=== PATIENT | female | born 1975 | race Two or more races ===

== ENCOUNTER 2023-01-01 06:24 | Inpatient (IN) | payer MEDICAID ==
[~2023-01-01] VITALS: Ht 147.3 cm; Wt 60.0 kg
[2023-01-01 07:27] LABS: Basophils # (auto) 0.1 10 ^3/uL (0-0.2); Basophils % (auto) 0.8 % (0.0-2.0); Eosinophils # (auto) 0.1 10 ^3/uL (0-0.8); Hemoglobin 7.1 g/dL (12.2-16.2); Lymphocytes # (auto) 1.6 10 ^3/uL (0.4-5.4)
[2023-01-01 07:28] LABS: Albumin 2.4 g/dL (3.4-5.0); Calcium 7.7 mg/dL (8.5-10.1); Eosinophils % (auto) 1.3 % (0.0-7.0); Hematocrit 20.9 % (36.0-46.0); Lymphocytes % (auto) 20.9 % (10.0-50.0); Mean Corpuscular Hemoglobin 27.8 pg (28.0-32.0); Mean Corpuscular Hgb Conc. 33.8 g/dL (32.0-36.0); Mean Corpuscular Volume 82.4 fL (80.0-100.0); Monocytes # (auto) 0.5 10 ^3/uL (0-1.3); Monocytes % (auto) 6.7 % (0.0-12.0); Neutrophils # (auto) 5.3 10 ^3/uL (1.6-8.6); Neutrophils % (auto) 70.3 % (37.0-80.0); Nucleated Red Blood Cells % 0.2 %; Potassium 3.4 mmol/L (3.5-5.1); Red Blood Cells 2.54 10^6/uL (4.0-5.20); White Blood Cell 7.5 10^3/uL (4.4-10.8)
[2023-01-01 07:31] LABS: BUN/Creatinine Ratio 28.7; Bilirubin, Total 0.1 mg/dL (0.2-1.0); Total Protein 6.5 g/dL (6.4-8.2)
[2023-01-01] MEDS: ACETAMINOPHEN 325 MG TAB PO PRN (10:06)
[2023-01-01] MEDS ORDERED: HYDROcodone-ACET 5/325MG TAB PO ONE (10:15)
[2023-01-01] MEDS ORDERED: ACETAMINOPHEN 325 MG TAB PO ONE (10:15)
[2023-01-01 11:03] LABS: Urine Bacteria NONE SEEN /hpf (None Seen); Urine Blood 3+ /uL (Negative); Urine WBC 128 /hpf (0 - 5); Urine WBC Clumps PRESENT /hpf (None Seen)
[2023-01-01 11:07] LABS: % Iron Saturation 6.1 % (15-50)
[2023-01-01] MEDS ORDERED: DOCUSATE SOD 100 MG CAP PO PRN (12:15)
[2023-01-01] MEDS ORDERED: ONDANSETRON HCL 4 MG/2 ML VIAL IV PRN (12:15)
[2023-01-01] MEDS ORDERED: ACETAMINOPHEN 325 MG TAB PO PRN (12:15)
[2023-01-01] MEDS: SODIUM CHLOR 0.9% PF (SALINE LOCK) 10ML VIAL/SYR IV SCH ×3 (13:10→22:33)
[2023-01-01 17:07] LABS: Hematocrit 17.4 % (36.0-46.0)
[2023-01-01 17:16] LABS: Hemoglobin 5.9 g/dL (12.2-16.2)
[2023-01-01 17:19] LABS: Cholesterol 211 mg/dL (< 200); Triglycerides 225 mg/dL (< 150)
[2023-01-01 17:21] LABS: HDL Cholesterol 61 mg/dL (40-59); LDL Cholesterol 120 mg/dL (< 100)
[2023-01-01 18:08] VITALS: BP 127/69
[2023-01-01 18:26] VITALS: BP 117/69
[2023-01-01 19:17] LABS: INR 0.93 (0.9-1.15)
[2023-01-01 19:20] LABS: % Iron Saturation 7.6 % (15-50)
[2023-01-01 20:35] VITALS: BP 128/73
[2023-01-02 00:06] LABS: Hematocrit 21.5 % (36.0-46.0); Hemoglobin 7.2 g/dL (12.2-16.2)
[2023-01-02 05:42] LABS: Basophils # (auto) 0.1 10 ^3/uL (0-0.2); Basophils % (auto) 0.8 % (0.0-2.0); Eosinophils # (auto) 0.1 10 ^3/uL (0-0.8); Mean Corpuscular Hemoglobin 28.3 pg (28.0-32.0); Mean Corpuscular Hgb Conc. 33.4 g/dL (32.0-36.0); Mean Corpuscular Volume 84.7 fL (80.0-100.0); Monocytes # (auto) 0.6 10 ^3/uL (0-1.3); White Blood Cell 7.3 10^3/uL (4.4-10.8)
[2023-01-02 05:44] LABS: Eosinophils % (auto) 1.6 % (0.0-7.0); Hemoglobin 7.3 g/dL (12.2-16.2); Lymphocytes # (auto) 1.7 10 ^3/uL (0.4-5.4); Monocytes % (auto) 8.2 % (0.0-12.0); Neutrophils # (auto) 4.9 10 ^3/uL (1.6-8.6); Neutrophils % (auto) 66.4 % (37.0-80.0); Nucleated Red Blood Cells % 0.2 %; Red Cell Distribution Width 17.2 % (11.8-14.3)
[2023-01-02 05:55] LABS: BUN/Creatinine Ratio 25.7; Calcium 7.5 mg/dL (8.5-10.1); Phosphorus 4.9 mg/dL (2.5-4.90); Potassium 3.3 mmol/L (3.5-5.1)
[2023-01-02] MEDS ORDERED: DEXTROSE (50%) 50ML SYRG IV SCH (08:00)
[2023-01-02] MEDS: ACETAMINOPHEN 325 MG TAB PO PRN (08:17)
[2023-01-02] MEDS: ACCU-CHEK COMFORT CURVE STRIP VI SCH ×2 (12:11→17:41)
[2023-01-02] MEDS: InsuLIN REG 1unit/0.01ml Soln (100units/ml) SC SCH ×2 (12:16→17:41)
[2023-01-02] MEDS: SODIUM CHLOR 0.9% PF (SALINE LOCK) 10ML VIAL/SYR IV SCH (14:09)
[2023-01-02 14:14] LABS: Ferritin 11.7 ng/mL (10-322)
[2023-01-02 14:15] LABS: Folate (Folic Acid) 16.6 ng/mL (5.38-24)
[2023-01-02] MEDS ORDERED: POTASSIUM EFFERVESENT TAB 25 MEQ PO ONE (15:00)
[2023-01-02] MEDS: FERROUS SULFATE 325mg EC TAB PO SCH (17:45)
[2023-01-02] MEDS ORDERED: SODIUM FERR GLUC 62.5MG/5ML 125 MG in SODIUM CHL 0.9% 100 ML IV ONE (18:15)
[2023-01-02] MEDS ORDERED: ATORVASTATIN 20 MG TAB PO SCH (22:00)
[2023-01-02 22:53] VITALS: BP 153/67
[2023-01-03] MEDS: ACCU-CHEK COMFORT CURVE STRIP VI SCH ×3 (00:15→12:12)
[2023-01-03] MEDS: SODIUM CHLOR 0.9% PF (SALINE LOCK) 10ML VIAL/SYR IV SCH ×3 (00:16→14:00)
[2023-01-03] MEDS ORDERED: METO25TA5 PO (01:53)
[2023-01-03] MEDS ORDERED: BUME1TAB3 PO (01:53)
[2023-01-03] MEDS ORDERED: GLIP5TAB12 PO (01:53)
[2023-01-03] MEDS ORDERED: LOSA-69 PO (01:53)
[2023-01-03] MEDS ORDERED: LOSA25TA2 PO (01:53)
[2023-01-03] MEDS ORDERED: SIMV-8 PO (01:53)
[2023-01-03] MEDS ORDERED: EMPA1TAB PO (01:53)
[2023-01-03] MEDS ORDERED: METO2.5T PO (01:53)
[2023-01-03] MEDS ORDERED: FERR325T20 PO (01:53)
[2023-01-03] MEDS ORDERED: DOCU100T15 PO (01:53)
[2023-01-03 04:00] VITALS: BP_SYST 133; BP_SYST 137; BP_DIAS 76
[2023-01-03 05:00] VITALS: BP 156/76
[2023-01-03] MEDS: InsuLIN REG 1unit/0.01ml Soln (100units/ml) SC SCH ×3 (06:00→12:27)
[2023-01-03 06:14] LABS: Basophils # (auto) 0 10 ^3/uL (0-0.2); Eosinophils # (auto) 0.1 10 ^3/uL (0-0.8); Hemoglobin 7.3 g/dL (12.2-16.2); Lymphocytes # (auto) 1.3 10 ^3/uL (0.4-5.4); Monocytes # (auto) 0.4 10 ^3/uL (0-1.3); Neutrophils # (auto) 3.2 10 ^3/uL (1.6-8.6); Nucleated Red Blood Cells % 0.1 %; White Blood Cell 5.1 10^3/uL (4.4-10.8)
[2023-01-03 06:16] LABS: Basophils % (auto) 0.7 % (0.0-2.0); Eosinophils % (auto) 2.3 % (0.0-7.0); Hematocrit 21.8 % (36.0-46.0); Lymphocytes % (auto) 25.2 % (10.0-50.0); Mean Corpuscular Hemoglobin 28.4 pg (28.0-32.0); Mean Corpuscular Hgb Conc. 33.7 g/dL (32.0-36.0); Mean Corpuscular Volume 84.4 fL (80.0-100.0); Monocytes % (auto) 8.5 % (0.0-12.0); Neutrophils % (auto) 63.3 % (37.0-80.0); Red Blood Cells 2.58 10^6/uL (4.0-5.20); Red Cell Distribution Width 17.5 % (11.8-14.3)
[2023-01-03 06:27] LABS: BUN/Creatinine Ratio 25.4; Potassium 3.1 mmol/L (3.5-5.1)
[2023-01-03] MEDS ORDERED: CHOL20007 OR (06:28)
[2023-01-03] MEDS ORDERED: SODI650T PO (06:33)
[2023-01-03 07:30] VITALS: BP 176/82
[2023-01-03 08:00] VITALS: BP 150/88
[2023-01-03 09:23] LABS: Hepatitis B Surface Antibody Negative (Negative)
[2023-01-03 09:40] LABS: Hepatitis A Total Antibody Positive (Negative)
[2023-01-03] MEDS: FERROUS SULFATE 325mg EC TAB PO SCH (10:29)
[2023-01-03 11:52] LABS: Hepatitis C Antibody Negative (Negative)
[2023-01-03 12:00] VITALS: BP 176/82
[2023-01-03] MEDS ORDERED: SODIUM FERR GLUC 62.5MG/5ML 125 MG in SODIUM CHL 0.9% 100 ML IV SCH (12:00)
[2023-01-03] MEDS ORDERED: cloNIDine HCL 0.1 MG TAB PO PRN (12:15)
[2023-01-03] MEDS ORDERED: POTASSIUM EFFERVESENT TAB 25 MEQ PO ONE (12:15)
[2023-01-03 17:00] VITALS: BP 103/70
[2023-01-03] MEDS ORDERED: METOPROLOL TARTRATE 25 MG TAB PO SCH (22:00)
[2023-01-04] MEDS ORDERED: LOSARTAN POTASSIUM 25 MG TAB PO SCH (10:00)
== END 2023-01-03 17:01 | disposition home or self-care (01) | DRG 663 ==
LOC: ER 06:24 → TELE 12:05 → TELE-CENTR 01-02 22:50
PROVIDERS: ADMIT Internal Medicine; ATTEND Nurse Practitioner Acute Care
PROC: 30233N1 Transfusion of Nonautologous Red Blood Cells into Peripheral Vein, Percutaneous Approach (ICD-10-PCS; principal; 2023-01-01)
DX: D50.9 Iron deficiency anemia, unspecified (principal); N17.0 Acute kidney failure with tubular necrosis; G93.41 Metabolic encephalopathy; E43 Unspecified severe protein-calorie malnutrition; D62 Acute posthemorrhagic anemia; N92.0 Excessive and frequent menstruation with regular cycle; R55 Syncope and collapse; D63.1 Anemia in chronic kidney disease; E11.22 Type 2 diabetes mellitus with diabetic chronic kidney disease; E66.01 Morbid (severe) obesity due to excess calories; E78.5 Hyperlipidemia, unspecified; Z68.27 Body mass index [BMI] 27.0-27.9, adult; Z20.822 Contact with and (suspected) exposure to COVID-19; N93.9 Abnormal uterine and vaginal bleeding, unspecified; N18.32 Chronic kidney disease, stage 3b; I12.9 Hypertensive chronic kidney disease with stage 1 through stage 4 chronic kidney disease, or unspecified chronic kidney disease
CPT/HCPCS: 36415; 70450; 76775; 80048; 80053; 80061; 81001; 82607; 82728; 82746; 82962; 83036; 83516; 83520; 83540; 83550; 83615; 83880; 84100; 84443; 85014; 85018; 85025; 85045; 85049; 85384; 85610; 86225; 86235; 86256; 86703; 86704; 86706; 86708; 86803; 86850; 86900; 86901; 86920; 87340; 87426; 93005; 93306; 93886; 99291; G0378; J1815

== ENCOUNTER 2023-11-16 17:27 | Emergency (ER) | payer MEDICAID ==
[~2023-11-16] VITALS: Ht 149.9 cm; Wt 63.6 kg
[~2023-11-16 17:27] MED LIST: BUME1TAB3 PO; DOCU100T15 PO; EMPA1TAB PO; FERR325T20 PO; GLIP5TAB12 PO; LOSA25TA5 PO; LOSA50TA46 PO; METO2.5T PO; METO25TA5 PO; SIMV20TA20 PO; SODI650T PO
[2023-11-16] MEDS ORDERED: ACETAMINOPHEN 325 MG TAB PO ONE ×2 (19:45→20:15)
[2023-11-16 19:50] VITALS: BP 147/74; PULSE 77; RESP 18; TEMP 97.6; O2SAT 99
== END 2023-11-16 21:41 | disposition home or self-care (01) ==
LOC: ER 17:27
DX: S93.401A Sprain of unspecified ligament of right ankle, initial encounter (principal); E11.22 Type 2 diabetes mellitus with diabetic chronic kidney disease; I12.0 Hypertensive chronic kidney disease with stage 5 chronic kidney disease or end stage renal disease; N18.6 End stage renal disease; W18.39XA Other fall on same level, initial encounter; Y93.89 Activity, other specified; Y92.89 Other specified places as the place of occurrence of the external cause; Y99.8 Other external cause status
CPT/HCPCS: 73610; 93971

== ENCOUNTER 2024-03-07 18:47 | Inpatient (IN) | payer MEDICAID ==
[~2024-03-07] VITALS: Ht 165.1 cm; Wt 81.5 kg
[~2024-03-07 18:47] MED LIST changes: -GLIP5TAB12 PO; +GLIP5TAB21 PO; +LOSA-534 PO; -LOSA50TA46 PO
[2024-03-07 20:25] LABS: Urine Bacteria None Seen /hpf (None Seen)
[2024-03-07 20:31] LABS: Urine Blood 2+ /uL (Negative); Urine Clarity Clear (Clear); Urine Color Light-Yellow (Yellow); Urine Protein, UAD 3+ (Negative); Urine Specific Gravity 1.015 (1.001-1.035); Urine Urobilinogen Normal (Negative); Urine WBC 6 /hpf (0 - 5)
[2024-03-07 21:19] LABS: Basophils # (auto) 0.1 10 ^3/uL (0-0.2); Monocytes # (auto) 0.7 10 ^3/uL (0-1.3); Nucleated Red Blood Cells % 0.5 %
[2024-03-07 21:21] LABS: Eosinophils # (auto) 0.1 10 ^3/uL (0-0.8); Eosinophils % (auto) 2.3 % (0.0-7.0); Hematocrit 20.7 % (36.0-46.0); Lymphocytes # (auto) 0.7 10 ^3/uL (0.4-5.4); Mean Corpuscular Hemoglobin 26.8 pg (28.0-32.0); Mean Corpuscular Hgb Conc. 31.4 g/dL (32.0-36.0); Mean Corpuscular Volume 85.6 fL (80.0-100.0); Monocytes % (auto) 10.8 % (0.0-12.0); Neutrophils # (auto) 4.7 10 ^3/uL (1.6-8.6); Neutrophils % (auto) 74.9 % (37.0-80.0); Red Blood Cells 2.42 10^6/uL (4.0-5.20); Red Cell Distribution Width 15.3 % (11.8-14.3); White Blood Cell 6.3 10^3/uL (4.4-10.8)
[2024-03-07 21:26] LABS: Hemoglobin 6.5 g/dL (12.2-16.2)
[2024-03-07 21:36] LABS: Alanine Aminotransferase 23 U/L (7-40); Albumin 3.3 g/dL (3.2-4.8); Alkaline Phosphatase 123 U/L (46-116); Anion Gap 10 (5-15); Aspartate Aminotransferase 19 U/L (13-40); BUN/Creatinine Ratio 15.5 (10.0-20.0); Bilirubin, Total 0.4 mg/dL (0.2-1.0); Calcium 7.9 mg/dL (8.7-10.4); Carbon Dioxide 18 mmol/L (20-30); Chloride 108 mmol/L (98-107); Glucose 158 mg/dL (74-106); Sodium 136 mmol/L (136-145); Total Protein 6.7 g/dL (5.7-8.2)
[2024-03-07 21:50] LABS: Blood Urea Nitrogen 80 mg/dL (9-23)
[2024-03-07 21:55] VITALS: PULSE 78; RESP 17; O2SAT 99
[2024-03-07] MEDS ORDERED: MORPHINE SULFATE INJ 2 MG/ml SYRG IV PRN (22:15)
[2024-03-07] MEDS ORDERED: ONDANSETRON HCL 4 MG/2 ML VIAL IV PRN (22:15)
[2024-03-07] MEDS ORDERED: DOCUSATE SOD 100 MG CAP PO PRN (22:15)
[2024-03-07] MEDS ORDERED: NITROGLYCERIN 0.4 MG SL TAB SL PRN (22:15)
[2024-03-07] MEDS ORDERED: ACETAMINOPHEN 325 MG TAB PO PRN (22:15)
[2024-03-07] MEDS ORDERED: DEXTROSE (50%) 50ML SYRG IV PRN (22:15)
[2024-03-07] MEDS: ASPirin 81 mg TAB PO ONE (23:07)
[2024-03-07] MEDS: FUROSEMIDE 40 MG/4 ML VIAL IV ONE (23:08)
[2024-03-07] MEDS: CALCIUM GLUC 1,000mg/50ml-NS 50 ML IV ONE (23:08)
[2024-03-08] VITALS (14 sets, daily range): BP systolic 138–170; BP diastolic 50–85; PULSE 68–81; RESP 16–20; TEMP 98–99; O2SAT 0–99
[2024-03-08] MEDS ORDERED: GABA100C PO (02:14)
[2024-03-08] MEDS ORDERED: FINE10TA PO (02:14)
[2024-03-08] MEDS ORDERED: FER325T PO (02:14)
[2024-03-08] MEDS ORDERED: AML5T PO (02:14)
[2024-03-08] MEDS ORDERED: SEVE800T7 PO (02:14)
[2024-03-08] MEDS ORDERED: CARV6.2517 PO (02:14)
[2024-03-08] MEDS: SODIUM CHLOR 0.9% PF (SALINE LOCK) 10ML VIAL/SYR IV SCH (06:05)
[2024-03-08] MEDS: InsuLIN REG 1unit/0.01ml Soln (100units/ml) SC SCH ×2 (06:06→21:17)
[2024-03-08] MEDS: ACCU-CHEK COMFORT CURVE STRIP VI SCH (06:31)
[2024-03-08] MEDS: B-COMPLEX W/ C & FOLIC ACID(NEPHROVITE TAB) PO SCH (08:41)
[2024-03-08] MEDS: ASPirin 81 mg TAB PO SCH (08:41)
[2024-03-08] MEDS: FUROSEMIDE 40 MG/4 ML VIAL IV SCH (08:41)
[2024-03-08] MEDS: CARVEDILOL 3.125 MG TAB PO SCH (08:42)
[2024-03-08 08:49] LABS: Basophils # (auto) 0.1 10 ^3/uL (0-0.2); Basophils % (auto) 0.9 % (0.0-2.0); Eosinophils # (auto) 0.2 10 ^3/uL (0-0.8); Eosinophils % (auto) 2.8 % (0.0-7.0); Hematocrit 27.2 % (36.0-46.0); Hemoglobin 8.8 g/dL (12.2-16.2); Lymphocytes # (auto) 0.8 10 ^3/uL (0.4-5.4); Lymphocytes % (auto) 13.1 % (10.0-50.0); Mean Corpuscular Hemoglobin 27.7 pg (28.0-32.0); Mean Corpuscular Hgb Conc. 32.4 g/dL (32.0-36.0); Mean Corpuscular Volume 85.4 fL (80.0-100.0); Monocytes # (auto) 0.8 10 ^3/uL (0-1.3); Monocytes % (auto) 11.8 % (0.0-12.0); Neutrophils # (auto) 4.5 10 ^3/uL (1.6-8.6); Neutrophils % (auto) 71.4 % (37.0-80.0); Nucleated Red Blood Cells % 0.5 %; Red Blood Cells 3.19 10^6/uL (4.0-5.20); Red Cell Distribution Width 15.9 % (11.8-14.3); White Blood Cell 6.4 10^3/uL (4.4-10.8)
[2024-03-08 09:04] LABS: Alanine Aminotransferase 22 U/L (7-40); Albumin 3.5 g/dL (3.2-4.8); Alkaline Phosphatase 116 U/L (46-116); Anion Gap 15 (5-15); Aspartate Aminotransferase 23 U/L (13-40); BUN/Creatinine Ratio 14.4 (10.0-20.0); Bilirubin, Total 0.8 mg/dL (0.2-1.0); Blood Urea Nitrogen 72 mg/dL (9-23); Calcium 8.2 mg/dL (8.5-10.1); Carbon Dioxide 13 mmol/L (20-30); Chloride 109 mmol/L (98-107); Glucose 107 mg/dL (74-106); Potassium 3.7 mmol/L (3.5-5.1); Sodium 137 mmol/L (136-145); Total Protein 6.6 g/dL (5.7-8.2)
[2024-03-08] MEDS: POTASSIUM CHL 20 Meq TABLET PO ONE (12:32)
[2024-03-08] MEDS: SODIUM BICARB 8.4% 50Meq/50ml SYR Vial IV ONE (12:34)
[2024-03-08 13:09] LABS: Amphetamine Screen, Urine Neg (NEGATIVE); Barbiturate Scree,Urine Neg (NEGATIVE); Benzodiazephine Screen, Urine Neg (NEGATIVE); Cannabinoid Screen, Urine Neg (NEGATIVE); Cocaine Screen, Urine Neg (NEGATIVE); Opiate Scree,Urine Neg (NEGATIVE); Phencyclidine Screen, Urine Neg (NEGATIVE)
[2024-03-08] MEDS: SODIUM BICARBONATE 650 MG TAB PO SCH (14:06)
[2024-03-08] MEDS ORDERED: AMLO1TAB21 PO (17:08)
[2024-03-08] MEDS ORDERED: EMPA1TAB3 PO (17:08)
[2024-03-08] MEDS ORDERED: SIMV20TA20 PO (17:10)
[2024-03-08] MEDS ORDERED: METO25TA36 PO (17:10)
[2024-03-08] MEDS ORDERED: ERGO1CAP23 PO (17:10)
[2024-03-08] MEDS: EPOETIN ALFA-EPBX 4,000 UNIT/ML VIAL SC ONE (20:45)
[2024-03-08] MEDS: ATORVASTATIN 20 MG TAB PO SCH (20:47)
[2024-03-09] VITALS (7 sets, daily range): BP systolic 146–163; BP diastolic 65–85; PULSE 67–77; RESP 16–20; TEMP 97.9–98.6; O2SAT 96–97
[2024-03-09] MEDS: hydrALAZINE HCL 20 MG/ML VL IV PRN (01:59)
[2024-03-09] MEDS: HYDROcodone-ACET 5/325MG TAB PO PRN (04:02)
[2024-03-09 07:33] LABS: Basophils # (auto) 0 10 ^3/uL (0-0.2); Basophils % (auto) 0.8 % (0.0-2.0); Eosinophils # (auto) 0.2 10 ^3/uL (0-0.8); Hemoglobin 8.4 g/dL (12.2-16.2); Mean Corpuscular Hemoglobin 27.7 pg (28.0-32.0); Mean Corpuscular Hgb Conc. 31.9 g/dL (32.0-36.0); Mean Corpuscular Volume 86.7 fL (80.0-100.0); Monocytes # (auto) 0.7 10 ^3/uL (0-1.3); Neutrophils # (auto) 4.3 10 ^3/uL (1.6-8.6)
[2024-03-09 07:35] LABS: Eosinophils % (auto) 3.6 % (0.0-7.0); Hematocrit 26.2 % (36.0-46.0); Lymphocytes # (auto) 0.8 10 ^3/uL (0.4-5.4); Lymphocytes % (auto) 12.9 % (10.0-50.0); Neutrophils % (auto) 71.7 % (37.0-80.0); Red Blood Cells 3.02 10^6/uL (4.0-5.20)
[2024-03-09 07:46] LABS: % Iron Saturation 10.9 % (15-50)
[2024-03-09 07:58] LABS: Alanine Aminotransferase 17 U/L (7-40); Alkaline Phosphatase 103 U/L (46-116); Anion Gap 15 (5-15); BUN/Creatinine Ratio 13.3 (10.0-20.0); Blood Urea Nitrogen 69 mg/dL (9-23); Calcium 7.7 mg/dL (8.5-10.1); Carbon Dioxide 15 mmol/L (20-30); Chloride 108 mmol/L (98-107); Glucose 72 mg/dL (74-106); Potassium 3.8 mmol/L (3.5-5.1); Sodium 138 mmol/L (136-145)
[2024-03-09 07:59] LABS: Aspartate Aminotransferase 15 U/L (13-40); Bilirubin, Total 0.8 mg/dL (0.2-1.0); Total Protein 5.9 g/dL (5.7-8.2)
[2024-03-09] MEDS ORDERED: BUMETANIDE 1mg/4ml VIAL (0.25mg/ml) ONE (12:23)
[2024-03-09] MEDS ORDERED: SODI650T PO (12:29)
[2024-03-09] MEDS ORDERED: BUMETANIDE INJECTION 20 ML ONE (12:30)
[2024-03-09] MEDS: BUMETANIDE 2.5mg/10ml (0.25 mg/ml) INJ IV ONE (12:34)
[2024-03-09] MEDS: IRON SUCROSE COMPLEX 100 ML IV SCH (12:34)
[2024-03-11 09:16] LABS: Hepatitis B Surface Antigen Negative (Negative)
[2024-03-11 09:37] LABS: Hepatitis C Antibody Negative (Negative)
[2024-03-11 10:31] LABS: Folate (Folic Acid) 15.6 ng/mL (>5.38)
== END 2024-03-09 14:45 | disposition home or self-care (01) | DRG 194 ==
LOC: ER 18:47 → TELE 22:16 → TELE-WESTW 23:40
PROVIDERS: ADMIT Nurse Practitioner Family; ATTEND Family Medicine
PROC: 30233N1 Transfusion of Nonautologous Red Blood Cells into Peripheral Vein, Percutaneous Approach (ICD-10-PCS; principal; 2024-03-08)
DX: I13.2 Hypertensive heart and chronic kidney disease with heart failure and with stage 5 chronic kidney disease, or end stage renal disease (principal); I21.A1 Myocardial infarction type 2; N17.9 Acute kidney failure, unspecified; E83.51 Hypocalcemia; D63.1 Anemia in chronic kidney disease; I50.33 Acute on chronic diastolic (congestive) heart failure; N18.6 End stage renal disease; E11.22 Type 2 diabetes mellitus with diabetic chronic kidney disease; E78.5 Hyperlipidemia, unspecified; Z83.3 Family history of diabetes mellitus; Z82.49 Family history of ischemic heart disease and other diseases of the circulatory system; Z79.899 Other long term (current) drug therapy; Z79.4 Long term (current) use of insulin
CPT/HCPCS: 36415; 71045; 80053; 80061; 80307; 81001; 81025; 82607; 82746; 82962; 83036; 83540; 83550; 83735; 83880; 84443; 84484; 85025; 86803; 86850; 86900; 86901; 86920; 87340; 93306; G0378; J1756; J1815